=== PATIENT | male | born 1970 | race Caucasian/White ===

== ENCOUNTER 2022-12-08 10:14 | Outpatient (CLI) | payer OTHER, SELFPAY ==
[2022-12-08 19:54] LABS: Alanine Aminotransferase 17 U/L (6-50); Albumin Level 3.6 g/dL (3.5-5.1); Alkaline Phosphatase 96 U/L (38-126); Anion Gap 4 mmol/L (8-16); Aspartate Amino Transferase 16 U/L (17-59); Bilirubin,Total 0.7 mg/dL (0.2-1.3); Blood Urea Nitrogen 15 mg/dL (9-20); Calcium 9.1 mg/dL (8.4-10.2); Carbon Dioxide 28 mmol/L (22-30); Chloride 98 mmol/L (98-107); Estimated Glomerular Filt Rate > 60; Glucose 216 mg/dL (65-110); Potassium 4.3 mmol/L (3.4-5.0); Sodium 130 mmol/L (137-145)
[2022-12-08 21:01] LABS: Hemoglobin A1C 7.5 % (<5.7)
== END 2022-12-08 10:15 | disposition home or self-care (01) ==
LOC: ANHGOSHLAB 10:14
PROVIDERS: PCP Family Medicine; Visit Provider Family Medicine
DX: E11.9 Type 2 diabetes mellitus without complications (principal); E78.5 Hyperlipidemia, unspecified; K51.90 Ulcerative colitis, unspecified, without complications
CPT/HCPCS: 36415; 80053; 83036

== ENCOUNTER 2022-12-21 11:01 | Outpatient (CLI) | payer OTHER, SELFPAY ==
[2022-12-21 20:24] LABS: Potassium 4.8 mmol/L (3.4-5.0)
[2022-12-21 20:48] LABS: Alanine Aminotransferase 20 U/L (6-50); Albumin Level 3.6 g/dL (3.5-5.1); Alkaline Phosphatase 78 U/L (38-126); Anion Gap 6 mmol/L (8-16); Aspartate Amino Transferase 29 U/L (17-59); Bilirubin,Total 0.6 mg/dL (0.2-1.3); Blood Urea Nitrogen 12 mg/dL (9-20); Calcium 8.5 mg/dL (8.4-10.2); Carbon Dioxide 27 mmol/L (22-30); Chloride 102 mmol/L (98-107); Estimated Glomerular Filt Rate > 60; Glucose 244 mg/dL (65-110); Sodium 135 mmol/L (137-145)
== END 2022-12-21 11:02 | disposition home or self-care (01) ==
LOC: ANHGOSHLAB 11:02
PROVIDERS: PCP Family Medicine; Visit Provider Nurse Practitioner
DX: E87.1 Hypo-osmolality and hyponatremia (principal)
CPT/HCPCS: 36415; 80053

== ENCOUNTER 2023-06-23 09:28 | Outpatient (CLI) | payer OTHER, SELFPAY ==
[2023-06-23 12:01] LABS: Basophils Absolute Auto 0.1 K/mm3 (0.0-0.1); Basophils Percent Auto 0.8 % (0.2-1.2); Eosinophils Absolute Auto 0.3 K/mm3 (0-0.3); Eosinophils Percent Auto 3.2 % (0-4.4); Hematocrit 46.2 % (42.0-52.0); Hemoglobin 14.9 g/dL (14.0-18.0); Immature Granulocyte Absolute 0.05 K/mm3 (0.00-0.031); Immature Granulocyte Percent A 0.6 % (0-0.5); Lymphocytes Absolute Auto 1.66 K/mm3 (0.9-3.2); Lymphocytes Percent Auto 19.2 % (18.3-44.2); Mean Corpuscular HGB Conc 32.3 g/dl (32-36); Mean Corpuscular Hemoglobin 30.5 pg (26-34); Mean Corpuscular Volume 94.5 fl (80-100); Mean Platelet Volume 11.1 fl (7.4-10.4); Monocytes Absolute Auto 0.9 K/mm3 (0.1-0.6); Monocytes Percent Auto 10.5 % (2.6-8.5); Neutrophils Absolute Auto 5.7 K/mm3 (1.3-6.7); Neutrophils Percent Auto 65.7 % (45.5-73.1); Platelet Count Result 278 k/mm3 (150-375); Red Blood Count 4.89 M/mm3 (4.6-6.20); Red Cell Distribution Width 13.6 % (11.5-14.5); White Blood Count 8.7 K/mm3 (4.5-10.0)
[2023-06-23 12:31] LABS: Vitamin D 25 Hydroxy 34.2 ng/mL
[2023-06-23 12:39] LABS: LDL Cholesterol Direct 113 mg/dL
[2023-06-23 12:41] LABS: Alanine Aminotransferase 24 U/L (6-50); Albumin Level 4.2 g/dL (3.5-5.1); Alkaline Phosphatase 81 U/L (38-126); Anion Gap 6 mmol/L (8-16); Aspartate Amino Transferase 30 U/L (17-59); Bilirubin,Total 0.8 mg/dL (0.2-1.3); Blood Urea Nitrogen 16 mg/dL (9-20); Calcium 9.4 mg/dL (8.4-10.2); Carbon Dioxide 29 mmol/L (22-30); Chloride 103 mmol/L (98-107); Cholesterol 178 mg/dL (0-200); Estimated Glomerular Filt Rate > 60; Glucose 184 mg/dL (65-110); HDL Direct 36 mg/dL; Potassium 4.6 mmol/L (3.4-5.0); Sodium 138 mmol/L (137-145)
[2023-06-23 12:42] LABS: Hemoglobin A1C 7.9 % (<5.7)
[2023-06-23 12:43] LABS: Prostate Specific Antigen 0.3 ng/mL (< OR = 4.0)
[2023-06-23 13:04] LABS: Microalbumin Urine Random 6.7 mg/L (0-16.7)
[2023-06-23 13:34] LABS: Triglycerides 154 mg/dL (<150)
[2023-06-23 14:07] LABS: Creatinine Urine 153.6 mg/dL; MALB Creatinine Ratio 4.4 mg/g (0-30)
== END 2023-06-23 09:29 | disposition home or self-care (01) ==
LOC: ANHGOSHLAB 09:30
PROVIDERS: PCP Family Medicine; Visit Provider Family Medicine
DX: Z00.00 Encounter for general adult medical examination without abnormal findings (principal); I10 Essential (primary) hypertension; E78.5 Hyperlipidemia, unspecified; E11.9 Type 2 diabetes mellitus without complications; Z12.5 Encounter for screening for malignant neoplasm of prostate; R03.0 Elevated blood-pressure reading, without diagnosis of hypertension; E53.8 Deficiency of other specified B group vitamins; E55.9 Vitamin D deficiency, unspecified
CPT/HCPCS: 36415; 80053; 80061; 82043; 82306; 82607; 83036; 84153; 84443; 85025; G0103

== ENCOUNTER 2023-09-25 12:37 | Outpatient (CLI) | payer OTHER, SELFPAY ==
[2023-09-25 19:24] LABS: Basophils Absolute Auto 0.1 K/mm3 (0.0-0.1); Basophils Percent Auto 1.2 % (0.2-1.2); Eosinophils Absolute Auto 0.3 K/mm3 (0-0.3); Eosinophils Percent Auto 3.1 % (0-4.4); Hematocrit 47.1 % (42.0-52.0); Hemoglobin 14.8 g/dL (14.0-18.0); Immature Granulocyte Absolute 0.02 K/mm3 (0.00-0.031); Immature Granulocyte Percent A 0.2 % (0-0.5); Lymphocytes Absolute Auto 1.82 K/mm3 (0.9-3.2); Lymphocytes Percent Auto 21.8 % (18.3-44.2); Mean Corpuscular HGB Conc 31.4 g/dl (32-36); Mean Corpuscular Hemoglobin 30.1 pg (26-34); Mean Corpuscular Volume 95.9 fl (80-100); Mean Platelet Volume 10.7 fl (7.4-10.4); Monocytes Percent Auto 12.1 % (2.6-8.5); Neutrophils Absolute Auto 5.1 K/mm3 (1.3-6.7); Neutrophils Percent Auto 61.6 % (45.5-73.1); Platelet Count Result 263 k/mm3 (150-375); Red Blood Count 4.91 M/mm3 (4.6-6.20); Red Cell Distribution Width 12.8 % (11.5-14.5); White Blood Count 8.4 K/mm3 (4.5-10.0)
== END 2023-09-25 12:38 | disposition home or self-care (01) ==
LOC: ANHGOSHLAB 12:41
PROVIDERS: PCP Family Medicine
DX: K51.019 Ulcerative (chronic) pancolitis with unspecified complications (principal)
CPT/HCPCS: 36415; 85025

== ENCOUNTER 2023-11-01 15:19 | Outpatient (CLI) | payer OTHER, SELFPAY ==
[2023-11-01 19:17] LABS: Alanine Aminotransferase 20 U/L (6-50); Albumin Level 4.1 g/dL (3.5-5.1); Alkaline Phosphatase 85 U/L (38-126); Anion Gap 9 mmol/L (8-16); Aspartate Amino Transferase 31 U/L (17-59); Bilirubin,Total 0.8 mg/dL (0.2-1.3); Blood Urea Nitrogen 15 mg/dL (9-20); Calcium 9.2 mg/dL (8.4-10.2); Carbon Dioxide 28 mmol/L (22-30); Chloride 102 mmol/L (98-107); Estimated Glomerular Filt Rate > 60; Glucose 134 mg/dL (65-110); Potassium 4.1 mmol/L (3.4-5.0); Sodium 139 mmol/L (137-145)
[2023-11-03 12:18] LABS: NIL 0.07 IU/mL; Quantiferon TB Plus, 1T NEGATIVE (NEGATIVE); TB1-NIL 0.04 IU/mL; TB2-NIL 0.04 IU/mL
== END 2023-11-01 15:20 | disposition home or self-care (01) ==
PROVIDERS: PCP Family Medicine
DX: K51.019 Ulcerative (chronic) pancolitis with unspecified complications (principal); Z79.899 Other long term (current) drug therapy
CPT/HCPCS: 36415; 80053; 86480

== ENCOUNTER 2023-12-21 09:57 | Outpatient (CLI) | payer OTHER, SELFPAY ==
[2023-12-21 12:47] LABS: Alanine Aminotransferase 21 U/L (6-50); Alkaline Phosphatase 89 U/L (38-126); Anion Gap 4 mmol/L (8-16); Aspartate Amino Transferase 36 U/L (17-59); Bilirubin,Total 0.7 mg/dL (0.2-1.3); Blood Urea Nitrogen 16 mg/dL (9-20); Calcium 9.2 mg/dL (8.4-10.2); Carbon Dioxide 27 mmol/L (22-30); Chloride 108 mmol/L (98-107); Estimated Glomerular Filt Rate > 60; Glucose 148 mg/dL (65-110); Potassium 4.6 mmol/L (3.4-5.0); Sodium 139 mmol/L (137-145)
[2023-12-21 13:22] LABS: Hemoglobin A1C 6.8 % (<5.7)
== END 2023-12-21 09:58 | disposition home or self-care (01) ==
LOC: ANHGOSHLAB 09:58
PROVIDERS: PCP Family Medicine; Visit Provider Family Medicine
DX: I10 Essential (primary) hypertension (principal); E11.9 Type 2 diabetes mellitus without complications
CPT/HCPCS: 36415; 80053; 83036

== ENCOUNTER 2024-07-01 09:50 | Outpatient (CLI) | payer OTHER, SELFPAY ==
[2024-07-01 14:53] LABS: Hematocrit 45.4 % (42.0-52.0); Hemoglobin 14.4 g/dL (14.0-18.0); Mean Corpuscular HGB Conc 31.7 g/dl (32-36); Mean Corpuscular Hemoglobin 31.4 pg (26-34); Mean Corpuscular Volume 98.9 fl (80-100); Mean Platelet Volume 10.8 fl (7.4-10.4); Platelet Count Result 253 k/mm3 (150-375); Red Blood Count 4.59 M/mm3 (4.6-6.20); Red Cell Distribution Width 12.7 % (11.5-14.5); White Blood Count 10.4 K/mm3 (4.5-10.0)
[2024-07-01 14:59] LABS: Alanine Aminotransferase 20 U/L (6-50); Albumin Level 3.9 g/dL (3.5-5.1); Alkaline Phosphatase 63 U/L (38-126); Anion Gap 5 mmol/L (4-12); Aspartate Amino Transferase 55 U/L (17-59); Bilirubin,Total 0.5 mg/dL (0.2-1.3); Blood Urea Nitrogen 17 mg/dL (9-20); CRP 0.6 mg/dL (<1.0); Calcium 9.5 mg/dL (8.4-10.2); Carbon Dioxide 28 mmol/L (22-30); Chloride 105 mmol/L (98-107); Cholesterol 125 mg/dL (0-200); Estimated Glomerular Filt Rate > 60; Glucose 82 mg/dL (65-110); HDL Direct 34 mg/dL; Potassium 4.6 mmol/L (3.4-5.0); Sodium 138 mmol/L (137-145); Triglycerides 109 mg/dL (<150)
[2024-07-01 15:10] LABS: Creatinine Urine 89.7 mg/dL
[2024-07-01 15:12] LABS: MALB Creatinine Ratio 6.8 mg/g (0-30); Microalbumin Urine Random 6.1 mg/L (0-16.7)
[2024-07-01 15:14] LABS: LDL Cholesterol Direct 69 mg/dL
[2024-07-01 15:58] LABS: Erythrocyte Sedimentation Rate 14 mm/hr (0-20)
[2024-07-01 16:52] LABS: Prostate Specific Antigen 0.4 ng/mL (< OR = 4.0)
[2024-07-01 17:04] LABS: Vitamin D 25 Hydroxy 39.2 ng/mL
[2024-07-01 17:05] LABS: Hemoglobin A1C 5.7 % (<5.7)
== END 2024-07-01 09:51 | disposition home or self-care (01) ==
LOC: ANHGOSHLAB 09:51
PROVIDERS: PCP Family Medicine; Visit Provider Family Medicine
DX: E78.5 Hyperlipidemia, unspecified (principal); I10 Essential (primary) hypertension; E11.9 Type 2 diabetes mellitus without complications; E53.8 Deficiency of other specified B group vitamins; K51.90 Ulcerative colitis, unspecified, without complications; E55.9 Vitamin D deficiency, unspecified; Z12.5 Encounter for screening for malignant neoplasm of prostate
CPT/HCPCS: 36415; 80053; 80061; 82043; 82306; 82607; 83036; 84153; 84443; 85027; 85652; 86140; G0103

== ENCOUNTER 2024-10-21 16:28 | Outpatient (CLI) | payer OTHER, SELFPAY ==
[2024-10-21 16:57] LABS: Hematocrit 42.9 % (42.0-52.0); Hemoglobin 14.4 g/dL (14.0-18.0); Mean Corpuscular HGB Conc 33.6 g/dl (32-36); Mean Corpuscular Hemoglobin 31.3 pg (26-34); Mean Corpuscular Volume 93.3 fl (80-100); Mean Platelet Volume 9.6 fl (7.4-10.4); Platelet Count Result 259 k/mm3 (150-375); Red Cell Distribution Width 13.2 % (11.5-14.5); White Blood Count 9.7 K/mm3 (4.5-10.0)
[2024-10-21 17:22] LABS: Alanine Aminotransferase 18 U/L (6-50); Albumin Level 4.3 g/dL (3.5-5.1); Alkaline Phosphatase 74 U/L (38-126); Anion Gap 4 mmol/L (4-12); Aspartate Amino Transferase 15 U/L (17-59); Bilirubin,Total 0.8 mg/dL (0.2-1.3); Blood Urea Nitrogen 15 mg/dL (9-20); CRP < 0.5 mg/dL (<1.0); Calcium 10.2 mg/dL (8.4-10.2); Carbon Dioxide 23 mmol/L (22-30); Chloride 111 mmol/L (98-107); Estimated Glomerular Filt Rate > 60; Glucose 89 mg/dL (65-110); Potassium 4.1 mmol/L (3.4-5.0); Sodium 138 mmol/L (137-145)
[2024-10-21 21:42] LABS: Erythrocyte Sedimentation Rate 16 mm/hr (0-20)
== END 2024-10-21 16:29 | disposition home or self-care (01) ==
LOC: ANHLAB 16:31
PROVIDERS: PCP Family Medicine; Visit Provider Nurse Practitioner Family
DX: K51.90 Ulcerative colitis, unspecified, without complications (principal); Z79.899 Other long term (current) drug therapy
CPT/HCPCS: 36415; 80053; 85027; 85652; 86140; 86480

== ENCOUNTER 2024-11-19 09:56 | Outpatient (CLI) | payer OTHER, SELFPAY ==
[2024-11-19 10:24] LABS: Hematocrit 45.5 % (42.0-52.0); Mean Corpuscular Hemoglobin 31.1 pg (26-34); Mean Corpuscular Volume 94.4 fl (80-100); Mean Platelet Volume 9.7 fl (7.4-10.4); Platelet Count Result 248 k/mm3 (150-375); Red Blood Count 4.82 M/mm3 (4.6-6.20); Red Cell Distribution Width 13.2 % (11.5-14.5)
[2024-11-19 10:39] LABS: Alanine Aminotransferase 20 U/L (6-50); Albumin Level 4.1 g/dL (3.5-5.1); Alkaline Phosphatase 71 U/L (38-126); Anion Gap 10 mmol/L (4-12); Aspartate Amino Transferase 18 U/L (17-59); Bilirubin,Total 0.7 mg/dL (0.2-1.3); Blood Urea Nitrogen 15 mg/dL (9-20); CRP < 0.5 mg/dL (<1.0); Calcium 9.8 mg/dL (8.4-10.2); Carbon Dioxide 22 mmol/L (22-30); Chloride 107 mmol/L (98-107); Estimated Glomerular Filt Rate > 60; Glucose 84 mg/dL (65-110); Potassium 4.4 mmol/L (3.4-5.0); Sodium 139 mmol/L (137-145)
--- OUTSIDE RECORDS SUMMARY | 2024-11-19 10:47 | XMS_ITS | Encounter Summary ---
Author Organization [facility] Address [address] [place] [address] Phone Care Team Providers Care Grey Goods Marker Name Role Phone Grey Denise DO Unavailable [phone] Tamera Rizvi MD Primary Care Provider Love Garduno APRN, ROLL RECLAIMER Unavailable Jann Busch MD Unavailable [phone] Reason for Visit * Reason Comments Medication Refill Encounter Details Date Type Department Care Team (Late st Contact Info) Description 06/18/2020 Refill [facility] [place] [address] [place] [address] Grey Denise, DO [address] [id number] Medication Refill Social History Tobacco Use Types Packs/Day Years Used Date Smoking Tobacco: Former Cigarettes 0.3 20 0 02/10/1986 - 02/10/2006 Smokeless Tobacco: Never Alcohol Use Standard Drinks/Week Comments No 0 (1 standard drink = 0.6 oz pur e alcohol) Sex and Gender Information Value Date Recorded Sex Assigned at Not on file Legal Sex Male 8:26 PM CDT Gender Identity Not on file Sexual Orientation Not on file Occupation Industry Job Start Date Job End Date [employer] Not on file Not on file Not on file documented as of this encounter Miscellaneous Notes * Telephone Encounter - Sujit Treviño CMA - 06/19/2020 8:01 AM CDT Pharmacy requesting refill of: Requested Prescriptions Pending Prescriptions Disp Refills ??? balsalazide (COLAZAL) 750 MG Capsule [Pharmacy Med Name: Balsalazide Disodium 750 MG Oral Capsule] 90 Cap 0 Sig: TAKE 1 CAPSULE BY MOUTH THREE TIMES DAILY FOR 30 DAYS Last fill: 05/05/2020 Patients last OV with GI: 02/05/2020 Next Office Visit with GI: None scheduled documented in this encounter Plan of Treatment Not on file documented as of this encounter Visit Diagnoses Not on filedocumented in this encounter Additional Health Concerns Infection Onset Date Last Indicated Resolved Time C. difficile Rule-Out 04/12/2022 04/12/20222021 4:25 PM CDT C. difficile Rule-Out 11/10/2022 11/10/20222022 2:17 PM DIET ATTENDANT documented as of this encounter Care Teams Grey Goods Marker Relationship Specialty Start Date End Date Tamera Rizvi MD PCP - General Family Medicine 12/14/17 Grey Denise DO Gastroenterology 12/12/17 Love Garduno APRN, ROLL RECLAIMER [address] [place] [address] Nurse Practitioner Advanced Practice Nurse 09/25/23 Jann Busch MD [address] [place] [address] Consulting Physician Gastroenterology 08/04/22 documented as of this encounter
--- OUTSIDE RECORDS SUMMARY | 2024-11-19 10:47 | XMS_ITS | Clinical Summary ---
Author Organization [facility] Address [address] [facility], [address] [address] Phone Care Team Providers Care Lead Python Developer Name Role Phone Grey Denise DO Unavailable [phone] Tamera Rizvi MD Primary Care Provider Love Garduno APRN, VISUAL BASIC DEVELOPER Unavailable Jann Busch MD Unavailable [phone] Allergies Active Allergy Reactions Criticality Noted Date Comments Penicillins Unknown 02/11/2016 Medications LUMIGAN 0.01 % Solution 6 Active brimonidine (ALPHAGAN) 0.2 % Solution 6 Active dorzolamide-juve lol (COSOPT) 22.3-6.8 MG/ML Solution 2 times daily. Both eyes 6 Active simvastatin (ZOCOR) 20 MG Tablet 6 Active JANUMET XR 50-1000 MG TABLET SR 24 HR daily. 6 Active MULTIPLE VITAMIN PO Take by mouth daily. Active folic acid (FOLVITE) 800 MCG TabletIndication s:UC Take 1 mg by mouth daily. Indications: UC Active Calcium-Magnesiu m-Vitamin D (CALCIUM 500 PO) Take by mouth. Active glipiZIDE (GLUCOTROL XL) 10 MG TABLET SR 24 HR TAKE 1 TABLET BY MOUTH ONCE DAILY WITH BREAKFAST 1 10/10/201 9 Active INVOKANA 300 MG Tablet 0 Active VYZULTA 0.024 % Solution 2 times daily. R eye 0 Active prednisoLONE acetate (PRED FORTE) 1 % Suspension Place 1 Drop in affected eye(s) daily. Both eyes Active ustekinumab (Stelara) 130 MG/26ML SolutionIndicati ons:Ulcerative pancolitis with complication (HCC) Stelara 520 mg IV x 1 Premed: Tylenol 650 mg PO x 1, Benadryl 25 mg po x 1 Post med/rescue med: Benadryl 50 mg IV x 1, Solucortef 100 mg IV x 1 104 mL 3 Active predniSONE (DELTASONE) 10 MG TabletIndication s:Ulcerative pancolitis without complication (HCC) prednisone 60 mg po x 14 days initially, 50 mg po x 10 days, 40 mg po x 10 days, 30 mg x 10 days, 20 mg po x 10 days, 10 mg x 10 days, then 5 mg po every other day for 10 days. 239 Tablet 3 Active Additional Information Patient not taking.Reported on 03/16/2023 latanoprost (XALATAN) 0.005 % Solution 3 Active Rhopressa 0.02 % Solution INSTILL 1 DROP INTO RIGHT EYE EVERY DAY AT BEDTIME 3 Active tirzepatide (Mounjaro) 15 MG/0.5ML Solution Pen-injector once a week. Monday night 3 Active ustekinumab (Stelara) 90 MG/ML Solution Prefilled SyringeIndicatio ns:Ulcerative pancolitis with complication (HCC) Stelara 90 mg SC q8wk 1 mL 6 4 Active lisinopril (PRINIVIL, ZESTRIL) 10 MG Tablet Take 10 mg by mouth every morning. Active Active Problems Problem Noted Date Diagnosed Date Ulcerative pancolitis without complication 02/10 Obesity due to excess calories 02/11/2016 High risk medication use 02/11/2016 Dyslipidemia 02/11/2016 Type 2 diabetes mellitus without complication Ulcerative pancolitis with complication Encounters Date Type Department Care Team Description 11/11/2024 Telephone [facility] - Gastroenterology - [place] [address] [place] [id number] Love Garduno APRN, CNP 09/03/2024 Telephone [facility] - [facility]astro[facility] [address] [place] [id number] Love Garduno APRN, VISUAL BASIC DEVELOPER Form Completion from Last 3 Months Immunizations Immunization Administration Dates Next Due Covid-19, Mrna, Lnp-s, Pf, 30 Mcg/0.3 Ml Dose (P fizer) 01/12/2021,12/22/2020 Influenza Vaccine, Quadrivalent, PF 08/04/2021,0 06/23/2020 TD VACCINE 05/25/2020 Family History Medical History Relation Name Comments Hypertension Father Cancer Maternal Grandmother breast Lung Cancer Maternal Grandmother Diabetes Mother Ulcerative Colitis Other cousin Diabetes Paternal Grandmother Diabetes Sister Relation Name Status Comments Father Maternal Grandmother Mother Other Paternal Grandmother Sister Social History Tobacco Use Types Packs/Day Years Used Date Smoking Tobacco: Former Cigarettes 0.3 20 0 02/10/1986 - 02/10/2006 Smokeless Tobacco: Never Tobacco Cessation:Counseling Given: Not Answered Alcohol Use Standard Drinks/Week Comments No 0 (1 standard drink = 0.6 oz pur e alcohol) Sexually Active Control Partners Comments Not Currently Sex and Gender Information Value Date Recorded Sex Assigned at Not on file Legal Sex Male 8:26 PM CDT Gender Identity Not on file Sexual Orientation Not on file 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 Not on file Not on file Not on file Last Filed Vital Signs Vital Sign Reading Time Taken Comments Blood Pressure 126/84 03/21/2024 10:25 AM CDT Pulse 96 03/21/2024 10:25 AM CDT Temperature 36.2 ??C (97.2 ??F) 03/21/2024 10:25 AM C DT Respiratory Rate 16 03/21/2024 10:25 AM CDT Oxygen Saturation 97% 03/21/2024 10:25 AM CDT Inhaled Oxygen Concentration - - Weight 149.2 kg (329 lb) 03/05/2024 4:12 PM CDT Height 175.3 cm (5' 9 ) 03/05/2024 4:12 PM CDT Body Mass Index 48.58 03/05/2024 4:12 PM CDT Plan of Treatment Health Maintenance Due Date Last Done Comments Diabetes: Eye Exam 1970 Diabetes: Foot Exam 1970 TdaP Immunization 1970 Pneumococcal Immunization (50+ years) (1 of 2 - PCV) 1989 Cologuard 02/25/2020 Immunochemical Fecal Occult Blood 02/25/2020 Zoster Immunization (1 of 2) 02/25/2020 Hepatitis B Immunization (3 of 3 - Hep B Twinrix 3-dose series) 05/25/2023 12/23/2022, 11/22/2022 Diabetes: Hemoglobin A1c 06/07/2023 12/08/2022 Influenza Immunization (#1) 2024 08/04/2021, 0 06/23/2020 SARS-COV-2 Immunization (3 - season) 2024 01/12/2021, 12/22/2020 Diabetes: Nephropathy Screening 11/01/2024 11/01/2023, 12/08/2022, 08/04/2022 Colonoscopy 03/21/2026 03/21/2024, 08/0 11/2021, 10/21/2019, Additional history exists Colorectal Cancer Screening 03/21/2026 Colonoscopy High Risk 03/21/2034 03/21/2024 , 05/24/2022, 10/21/2019, Additional history exists Respiratory Syncytial Virus (RSV) Immunization (Adult) (1 - 1-dose 75+ series) 2045 Hepatitis C Virus (HCV) Screening Completed 08/16/2019, 12/08/2017 DTaP/Tdap/Td Immunization Discontinued 05/25/2020 Meningococcal Immunization (ACWY) Aged Out No longer eligible based on patient's age to complete this topic Rotavirus Immunization Aged Out No lo nger eligible based on patient's age to complete this topic Procedures Procedure Name Priority Date/Time Associated Diagnosis Comments CMP (COMPREHENSIVE METABOLIC PANEL) Routine 11/01/2023 12:00 AM LANGUAGE INTERPRETER Ulcerative pancolitis with complication (HCC) HEMOGLOBIN, A1C 12/08/2022 12:00 AM LANGUAGE INTERPRETER HM COLONOSCOPY Routine 10/21/2019 HEPATITIS PANEL ACUTE (AHP) Routine 08/16/2019 10:09 AM CDT Ulcerative pancolitis (HCC) Gastroesophageal reflux disease, esophagitis presence not specified Hx of adenomatous colonic polyps from Last 3 Months or Most Recently Relevant to Health Maintenance Results * CMP (COMPREHENSIVE METABOLIC PANEL) (11/01/2023 12:00 AM LANGUAGE INTERPRETER) Blood Love Garduno SALES ASSISTANT DISPLAYS, VISUAL BASIC DEVELOPER CHEMISTRY ORDERAB LES Final Result SCAN * HEMOGLOBIN, A1C (12/08/2022 12:00 AM LANGUAGE INTERPRETER) HGB-A1C 7.5 % SCAN 12/08/2022 us Provider Scan CHEMISTRY ORDERABLES Final Resul t SCAN * HM COLONOSCOPY (10/21/2019) Grey Denise DO PROCEDURE/MINOR SURGICAL ORDERA BLES Final Result * HEPATITIS PANEL ACUTE (AHP) (08/16/2019 10:09 AM CDT) HEPATITIS A IGM ANTIBODY NON DETECTED NON DETECTED 08/16/2019 10:10 PM CDT [facility] Comment: IGM Antibodies to HAV not detected. ??Does not exclude early acute or recovered HAV infection. HEP B CORE AB (IGM) NON DETECTED NON DETECTED 08/16/2019 10:10 PM CDT [facility] Comment: IGM anti-HBC not detected. ??Does not exclude the possibility of exposure to or infection with HBV. HEPATITIS B SURFACE ANTIGEN NON DETECTED NON DETECTED 08/16/2019 10:10 PM CDT [facility] Comment: A nonreactive test result does not exclude the possibility of exposure to or infection with Hepatitis B virus. A nonreactive test result in individuals with prior exposure to hepatitis B may be due to antigen levels below the detection limit of this assay or lack of antigen reactivity to the antibodies in this assay. hepatitis C antibody 0.15 <1 S/CO 08/16/2019 10:10 PM CDT [facility] Comment: Signal/Cutoff ratio ??< 0.79 is Nondetected Signal/Cutoff ratio 0.80-0.99 is Grayzone Signal/Cutoff ratio > 0.99 is Detected Supplemental assays are recommended if signal/cutoff ratio is >/=1.00. ??Signal/cutoff ratio result >/= 5.00 is 97% predictive of positivity for recombinant immunoblot assay (RIBA) and will be reported to the [place] Department of Public Health as required. Blood specimen (specimen) Venipuncture / Unknown 08/16/2019 10:09 AM CDT 08/16/2019 1:13 PM CDT us Christie Barriga SALES ASSISTANT DISPLAYS, VISUAL BASIC DEVELOPER HEMATOLOGY ORDERA BLES Final Result Performing Organization Address City/State/[facility] Co de Phone Number [facility] [address] [place] [address], from Last 3 Months or Most Recently Relevant to Health Maintenance Insurance Care Teams Lead Python Developer Relationship Specialty Start Date End Date Tamera Rizvi MD PCP - General Family Medicine 12/14/17 Grey Denise DO Gastroenterology 12/12/17 Love Garduno APRN, ALEKS [address] [place] [address] Nurse Practitioner Advanced Practice Nurse 09/25/23 Jann Busch MD [address] [place] [address] Consulting Physician Gastroenterology 08/04/22
--- OUTSIDE RECORDS SUMMARY | 2024-11-19 10:47 | XMS_ITS | Continuity of Care Document ---
Author Organization [facility] Address [address] [place] [address] [place] [address] Phone Care Team Providers Care Shed Workers Supervisor Name Role Phone Kelvin Taylor Unavailable Unavailable Procedures Procedure Date Office/outpatient Visit, [facility] Visual Field Examination(s) Office Consultation Corneal Pachymetry Advance Directives Directive Yes / No Effective Date File Name No Information Encounters Encounter Description Practice Location Reason(s) For Visit Diagnoses Date Provider Providers Copied on Encounter Office/outpati ent Visit, Est [facility], [address] [place] [address] [address], [place], [place], [id number], tel:[phone] [facility] No Information Jul- 6-200 9 Krishnasamy Kelvin. [address] [place] [address], [facility], [place]. tel:[phone] [facility], [address], [place], [place], [id number], tel:[phone] [facility] No Information 8-200 9 Krishnasamy Kelvin. [address] [place] [address], [facility], [place]. tel:[phone] Referring Provider: Kelvin vásquez, [address] [place] [address], [facility]. tel:[phone] [facility], [address] [place] [address] [address], [place], [place], [id number], [place] tel:[phone] [facility] No Information 9 Claudia Warren. [address] [facility], [place], [address], [place]. tel:[phone] Referring Provider: Lukas Lizarraga OD, [address], [address]. tel:[phone] Family History Family Member Type Diagnosis Age At Onset No Information Payers Payer name Insurance type Covered libertarian ID Authoriza tion(s) No Information Social History Type Description Quantity Date Captured Comments Sex Male Smoking Status No Information Chief Complaint And Reason For Visit No Information Reason For Referral Reason For Referral No Information History Of Present Illness Encounter Date Complaint History Of Prese nt Illness No Information Functional Status Date Functional Assessmen t No Information Instructions Date Instruction Additional Infor mation No Information Assessments Type Assessment Date No Information Patient Care Teams Name Effective Dates (start - stop) Status Members No Information
--- OUTSIDE RECORDS SUMMARY | 2024-11-19 10:47 | XMS_ITS | Encounter Summary ---
Author Organization [facility] Address [address] [place] [address] Phone Care Team Providers Care Roller Setter Name Role Phone Grey Denise DO Unavailable [phone] Tamera Rizvi MD Primary Care Provider Love Garduno APRN, MEDICAL DEVICE SALES REPRESENTATIVE Unavailable Jann Busch MD Unavailable [phone] Reason for Visit * Reason Comments Medication Refill Encounter Details Date Type Department Care Team (Late st Contact Info) Description 07/18/2022 Refill [facility] [address] [place] [address] Jann Busch MD [address] [place] [address] Medication Refill Social History Tobacco Use Types [...] encounter Miscellaneous Notes * Telephone Encounter - Cherise Meyer, RN - 07/18/2022 1:21 PM CDT Medication failed the protocol, provider to review and approve the medication order if appropriate. Requested Prescriptions Pending Prescriptions Disp Refills budesonide (ENTOCORT EC) [address] Particles [Pharmacy Med Name: Budesonide 3 MG Oral CapsuleDelayed Release Particles] 90 Capsule 0 Sig: TAKE 3 CAPSULES BY MOUTH IN THE MORNING Not Delegated - Corticosteroids Protocol Failed - 07/18/2022 12:46 PM Failed - This refill cannot be delegated Passed - Visit with relevant provider in past 12 months or upcoming 90 days Recent Visits Date Type Provider Dept 09/03/21 Office Visit Henny Rivers Gris, CONSUELO [facility] [place] Showing recent visits within past 365 days and meeting all other requirements Future Appointments Date Type Provider Dept 08/04/22 Appointment Jann Busch MD [facility] [place] Showing future appointments within next 90 days and meeting all other requirements documented in this encounter Plan of Treatment Not on file documented as of this encounter Visit Diagnoses Diagnosis Ulcerative pancolitis without complication (HCC) documented in this encounter Additional Health Concerns Infection Onset Date Last Indicated Resolved Time C. difficile Rule-Out 11/10/2022 11/10/20222022 2:17 PM COLD MILL SUPERVISOR documented as of this encounter Care Teams Roller Setter Relationship Specialty Start Date End Date Tamera Rizvi MD PCP - General Family Medicine 12/14/17 Grey Denise DO Gastroenterology 12/12/17 Love Garduno APRN, MEDICAL DEVICE SALES REPRESENTATIVE [address] [place] [address] Nurse Practitioner Advanced Practice Nurse 09/25/23 Jann Busch MD [address] [place] [address] Consulting Physician Gastroenterology 08/04/22 documented as of this encounter
[2024-11-19 11:01] LABS: Erythrocyte Sedimentation Rate 14 mm/hr (0-20)
[2024-11-21 12:48] LABS: NIL 0.02 IU/mL; Quantiferon TB Plus, 1T NEGATIVE (NEGATIVE); TB1-NIL 0.03 IU/mL; TB2-NIL 0.01 IU/mL
== END 2024-11-19 09:57 | disposition home or self-care (01) ==
PROVIDERS: PCP Family Medicine; Visit Provider Nurse Practitioner Family
DX: K51.90 Ulcerative colitis, unspecified, without complications (principal); Z79.899 Other long term (current) drug therapy
CPT/HCPCS: 36415; 80053; 85027; 85652; 86140; 86480

== ENCOUNTER 2024-12-31 09:00 | Outpatient (CLI) | payer OTHER, SELFPAY ==
--- OUTSIDE RECORDS SUMMARY | 2024-12-31 09:36 | XMS_ITS | Clinical Summary ---
Author Organization [facility] Address [address] [facility], [address] [address] Phone Care Team Providers Care Insurance Coordinator Name Role Phone Grey Denise DO Unavailable Tamera Rizvi MD Primary Care Provider Love Garduno APRN, SITE PLANNER Unavailable Jann Busch MD Unavailable [phone] Allergies Active Allergy Reactions Criticality Noted Date [...] Telephone [facility] - Gastroenterology - [place] [address] [place] [address] Love Garduno APRN, SITE PLANNER from Last 3 Months Immunizations Immunization Administration [...] 96 03/21/2024 10:25 AM CDT Temperature 36.2 C (97.2 F) 03/21/2024 10:25 AM CDT Respiratory Rate 16 03/21/2024 10:25 AM CDT [...] (COMPREHENSIVE METABOLIC PANEL) Routine 11/01/2023 12:00 AM FLASK MAKER Ulcerative pancolitis with complication (HCC) HEMOGLOBIN, A1C 12/08/2022 12:00 AM FLASK MAKER HM COLONOSCOPY Routine 10/21/2019 HEPATITIS PANEL ACUTE (AHP) Routine 08/16/2019 10:09 AM CDT Ulcerative pancolitis (HCC) Gastroesophageal reflux disease, esophagitis presence not specified Hx of adenomatous colonic polyps from Last 3 Months or Most Recently Relevant to Health Maintenance Results * CMP (COMPREHENSIVE METABOLIC PANEL) (11/01/2023 12:00 AM FLASK MAKER) Blood us Love Garduno DEVELOPMENT GEOLOGIST, SITE PLANNER CHEMISTRY ORDERAB LES Final Result SCAN * HEMOGLOBIN, A1C (12/08/2022 12:00 AM FLASK MAKER) HGB-A1C 7.5 % SCAN 12/08/2022 us Provider Scan CHEMISTRY ORDERABLES Final Resul t SCAN * HM COLONOSCOPY (10/21/2019) us Grey Carolina Denise DO PROCEDURE/MINOR SURGICAL ORDERA BLES Final Result * HEPATITIS PANEL ACUTE (AHP) (08/16/2019 10:09 AM CDT) Pathologist [facility] HEPATITIS A IGM ANTIBODY NON DETECTED NON DETECTED 08/16/2019 10:[address] [facility] Comment: IGM Antibodies to HAV not detected. Does not exclude early acute or recovered HAV infection. HEP B CORE AB (IGM) NON DETECTED NON DETECTED 08/16/2019 10:[address] [facility] Comment: IGM anti-HBC not detected. Does not exclude the possibility of exposure to or infection with HBV. HEPATITIS B SURFACE ANTIGEN NON DETECTED NON DETECTED 08/16/2019 10:[address] [facility] Comment: A nonreactive test result does not [...] 0.15 <1 S/CO 08/16/2019 10:[address] [facility] Comment: Signal/Cutoff ratio < 0.79 is Nondetected Signal/Cutoff ratio 0.80-0.99 is Grayzone Signal/Cutoff ratio > 0.99 is Detected Supplemental assays are recommended if signal/cutoff ratio is >/=1.00. Signal/cutoff ratio result >/= 5.00 is 97% predictive of positivity for recombinant immunoblot assay (RIBA) and will be reported to the [place] Department of Public Health as required. Blood specimen (specimen) Venipuncture / Unknown 08/16/2019 10:09 AM CDT 08/16/2019 1:13 PM CDT us Christie Barriga APRN, ALEKS HEMATOLOGY ORDERA BLES Final Result [facility] [address] [place] [address], [place] from Last 3 Months or Most Recently Relevant to Health Maintenance Insurance [facility] Care Teams Insurance Coordinator Relationship Specialty Start Date End Date Tamera Rizvi MD PCP - General Family Medicine 12/14/17 Grey Denise DO Gastroenterology 12/12/17 Love Garduno APRN, SITE PLANNER [address] [place] [address] Nurse Practitioner Advanced Practice Nurse 09/25/23 Jann Busch MD [address] [place] [address] Consulting Physician Gastroenterology 08/04/22
--- OUTSIDE RECORDS SUMMARY | 2024-12-31 09:36 | XMS_ITS | Encounter Summary ---
Author Organization [facility] Address [address] [place] [address] Phone Care Team Providers Care Shipping Checker Name Role Phone Grey Denise DO Unavailable [phone] Tamera Rizvi MD Primary Care Provider Love Garduno APRN, AWNING FINISHER Unavailable Jann Busch MD Unavailable [phone] Reason for Visit * Reason Comments Medication Refill Encounter Details Date Type Department Care Team (Late st Contact Info) Description 06/18/2020 Refill [facility] [address] [place] [address] Grey Denise, DO [address] [id number] Medication Refill Social History Tobacco Use Types [...] C. difficile Rule-Out 11/10/2022 11/10/20222022 2:17 PM ASSURANCE SENIOR MANAGER INSURANCE documented as of this encounter Care Teams Shipping Checker Relationship Specialty Start Date End Date Tamera Rizvi MD PCP - General Family Medicine 12/14/17 Grey Denise DO Gastroenterology 12/12/17 Love Garduno APRN, AWNING FINISHER [address] [place] [address] Nurse Practitioner Advanced Practice Nurse 09/25/23 Jann Busch MD [address] [place] [address] Consulting Physician Gastroenterology 08/04/22 documented as of this encounter
--- OUTSIDE RECORDS SUMMARY | 2024-12-31 09:36 | XMS_ITS | Encounter Summary ---
Author Organization [facility] Address [address] [place] [address] Phone Care Team Providers Care Tobacco Grader Name Role Phone Grey Denise DO Unavailable [phone] Tamera Rizvi MD Primary Care Provider Love Garduno APRN, TUGBOAT ENGINEER Unavailable Jann Busch MD Unavailable [phone] Reason for Visit * Reason Comments Medication Refill Encounter Details Date Type Department Care Team (Late st Contact Info) Description 07/18/2022 Refill [facility] [address] [place] [address] Jann Busch MD [address] [place] [address] Medication Refill Social History Tobacco Use Types [...] 09/03/21 Office Visit Henny Rivers Gris, CONSUELO [facility] [place] Showing recent visits within past 365 days and meeting all other requirements Future Appointments Date Type Provider Dept 08/04/22 Appointment Jann Busch MD [facility] [place] Showing future appointments within next 90 days and meeting all other requirements documented in this encounter Plan of Treatment Not on file documented as of this encounter Visit Diagnoses Diagnosis Ulcerative pancolitis without complication (HCC) documented in this encounter Additional Health Concerns Infection Onset Date Last Indicated Resolved Time C. difficile Rule-Out 11/10/2022 11/10/20222022 2:17 PM LUMBER BUYER documented as of this encounter Care Teams Tobacco Grader Relationship Specialty Start Date End Date Tamera Rizvi MD PCP - General Family Medicine 12/14/17 Grey Denise DO Gastroenterology 12/12/17 Love Garduno APRN, TUGBOAT ENGINEER [address] [place] [address] Nurse Practitioner Advanced Practice Nurse 09/25/23 Jann Busch MD [address] [place] [address] Consulting Physician Gastroenterology 08/04/22 documented as of this encounter
--- OUTSIDE RECORDS SUMMARY | 2024-12-31 09:36 | XMS_ITS | Continuity of Care Document ---
Author Organization [facility] Address [address] [place] [address] [place] [address] Phone Care Team Providers Care Proof Coin Collector Name Role Phone Kelvin Taylor Unavailable Unavailable Procedures Procedure Date Office/outpatient Visit, [facility] Visual Field Examination(s) Office Consultation Corneal Pachymetry Advance Directives Directive Yes / No Effective Date File Name No Information Encounters Encounter Description Practice Location Reason(s) For Visit Diagnoses Date Provider Providers Copied on Encounter Office/outpati ent Visit, [facility], [address] [place] [address] [address], [place], [place], [id number], tel:[phone] [facility] No Information 6-200 9 Krishnasamy Kelvin. [address] [place] [address], [facility] [place], [place]. tel:[phone] [facility], [address], [place], [place], [id number], tel:[phone] [facility] No Information 8-200 9 Krishnasamy Kelvin. [address] [place] [address], [facility] [place], [place]. tel:[phone] Referring Provider: Kelvin vásquez, [address] [place] [address], [facility]. tel:[phone] Office Consultation [facility], [address] [place] [address] [address], [place], [place], [id number], [place] tel:[phone] [facility] No Information 9 Claudia Warren. [address] [facility], [place], [address], [place]. tel:[phone] Referring Provider: Lukas Lizarraga OD, [address], [address]. tel:[phone] Family History Family Member Type Diagnosis Age At Onset No Information Payers Payer name Insurance type Covered constitution party ID Authoriza tion(s) No Information Social History [...]
[2024-12-31 16:45] LABS: Hemoglobin A1C 5.4 % (<5.7)
== END 2024-12-31 09:01 | disposition home or self-care (01) ==
LOC: ANHGOSHLAB 09:00
PROVIDERS: PCP Family Medicine; Visit Provider Family Medicine
DX: E11.9 Type 2 diabetes mellitus without complications (principal)
CPT/HCPCS: 36415; 83036